=== PATIENT | male | born 1985 ===

== ENCOUNTER 2020-08-20 01:06 | Emergency (ER) | payer OTHER ==
[~2020-08-20] VITALS: Ht 162.6 cm; Wt 62.6 kg
[2020-08-20 01:18] VITALS: BP 133/92
--- NOTE | 2020-08-20 01:37 | ED Cough/URI ---
General Chief Complaint: Cough/Cold/Flu Symptoms Stated Complaint: COVID +, COUGH Nursing Triage Note: PT AMBULATE TO ROOM 10 WITH C/O COUGH. PT REPORTS HE TESTED POSITIVE FOR GONZALEZ ON TUESDAY. PT DENIES SOB, CHEST PAIN, FEVER. PT STATES HIS ONLY CONCERN IS HIS COUGH. Sepsis Screen: No Definite Risk Source: patient Exam Limitations: no limitations History of Present Illness Date Seen by Provider: Aug 20, 2020 Time Seen by Provider: 01:32 Initial Comments Patient is a 35-year-old male who presents to the emergency room with a chief complaint of feeling mildly short of breath with a cough. Patient states that he was diagnosed with coronavirus on Tuesday, 4 days ago. Patient has had no significant symptomatology. He denies any earache, sore throat, runny nose. He denies body aches. He states his sense of taste is changed but not lost. Patient states that he has not really had any symptoms until this evening when he went to lay down to go to bed and he developed cough. Patient states that he has been taking some honey but his cough was worse tonight and he became concerned and came to the emergency room for further evaluation. He denies any GI symptoms or symptoms. He states he is in quarantine with the rest of his family. All other review of systems reviewed and negative except as stated. Timing/Duration: just prior to arrival Severity/Quality: moderate Prior Episodes/Possible Cause: occasional episodes Associated Symptoms: cough Allergies and Home Medications Patient Home Medication List Home Medication List Reviewed: Yes Review of Systems Review of Systems Constitutional: see HPI EENTM: no symptoms reported Respiratory: cough Cardiovascular: no symptoms reported Gastrointestinal: no symptoms reported Genitourinary: no symptoms reported Musculoskeletal: no symptoms reported Skin: no symptoms reported All Other Systems Reviewed Negative Unless Noted: Yes Past Ybgidop-Bzsoxr-Kftxks Hx Patient Social History Alcohol Use: Denies Use Recreational Drug Use: No Smoking Status: Never a Smoker 2nd Hand Smoke Exposure: No Recent Foreign Travel: No Contact w/Someone Who Travel: No Recent Infectious Disease Expo: Yes Recent Hopitalizations: No Physical Abuse: No Sexual Abuse: No Mistreated: No Fear: No Seasonal Allergies Seasonal Allergies: No Past Medical History Surgeries: No Respiratory: No Cardiac: No Neurological: No Genitourinary: No Gastrointestinal: No Musculoskeletal: No Endocrine: No HEENT: No Cancer: No Psychosocial: No Integumentary: No Blood Disorders: No Physical Exam Vital Signs - First Documented 08/20/20 01:18 Temp 36.9 Pulse 99 Resp 18 B/P (MAP) 133/92 (106) O2 Delivery Room Air Capillary Refill : Less Than 3 Seconds Height: '" Weight: lbs. oz. kg; 23.00 BMI Method: General Appearance: WD/WN, no apparent distress HEENT: normal ENT inspection Neck: full range of motion, supple Respiratory: lungs clear, normal breath sounds, no respiratory distress, no accessory muscle use Cardiovascular: regular rate, rhythm Gastrointestinal: non tender, soft Neurologic/Psychiatric: alert, normal mood/affect, oriented x 3 Skin: normal color, warm/dry Progress/Results/Core Measures Suspected Sepsis Recent Fever Within 48 Hours: No Infection Criteria Present: None New/Unexplained Altered Menta: No Sepsis Screen: No Definite Risk SIRS Temperature: Pulse: 99 Respiratory Rate: 18 Blood Pressure 133 /92 Mean: 106 Results/Orders Vital Signs/I&O 08/20/20 08/20/20 01:18 01:29 Temp 36.9 Pulse 99 Resp 18 B/P (MAP) 133/92 (106) O2 Delivery Room Air Room Air Capillary Refill : Less Than 3 Seconds Blood Pressure Mean: 106 Progress Note : Time: 01:34 Progress Note 35-year-old male presents with a chief complaint of cough associated with coronavirus. Patient looks well. He is in no respiratory distress. Patient's vital signs are stable, the patient has 100% room air oxygen saturations. He is normotensive and not tachycardic. He is afebrile. Patient is counseled on cough medications tnea-xww-mxizcdn as well as home remedies including warm tea with honey and lemon. He verbalizes understanding. He is comfortable with the plan of care. All questions are sought and answered and he is stable for discharge. Departure Impression Primary Impression: Cough Additional Impression: Coronavirus infection Disposition: HOME, SELF-CARE Condition: Stable Departure-Patient Inst. Decision time for Depature: 01:35 Referrals: [facility] Patient Instructions: Coronavirus Disease 2019 (COVID-19) ED Add. Discharge Instructions: Drink plenty of fluids to stay well-hydrated. Use mtcx-xyh-yputscp Robitussin DM cough medication for your cough. You can also use warm tea with honey and lemon. Honey is very good for cough. Please follow-up with your primary care physician. Return to the emergency room for any worsening symptoms especially associated with shortness of breath, high fever, body aches or any other emergent concerning symptoms. OLIVIA RODRIGEZ MD Aug 20, 2020 01:37
== END 2020-08-20 01:45 | disposition home or self-care (01) ==
LOC: ER 01:10
DX: U07.1 COVID-19 (principal)
CPT/HCPCS: 99282

== ENCOUNTER 2021-11-19 11:14 | Emergency (ER) | payer SELFPAY ==
[~2021-11-19] VITALS: Ht 170 cm; Wt 81.6 kg
[2021-11-19] MEDS ORDERED: LACTATED RINGERS 1,000 ML IV ONE (11:45)
[2021-11-19] MEDS ORDERED: ONDANSETRON 4 MG/2 ML (SDV) Z0FRAN IVP ONE (11:45)
[2021-11-19] MEDS ORDERED: PANTOPRAZOLE 40 MG (PROTONIX) VIAL IV ONE (11:45)
[2021-11-19 11:54] LABS: BASOPHILS % (AUTO) 1 % (0-10); EOSINOPHILS % (AUTO) 0 % (0-10); HEMATOCRIT 44 % (40-54); LYMPHOCYTES # (AUTO) 0.6 10^3/uL (1.0-4.0); LYMPHOCYTES % (AUTO) 8 % (12-44); MEAN CORPUSCULAR HEMOGLOBIN 28 pg (25-34); MEAN CORPUSCULAR HGB CONC 34 g/dL (32-36); MEAN CORPUSCULAR VOLUME 83 fL (80-99); MEAN PLATELET VOLUME 9.6 fL (9.0-12.2); MONOCYTES # (AUTO) 0.7 10^3/uL (0.0-1.0); MONOCYTES % (AUTO) 10 % (0-12); NEUTROPHILS # (AUTO) 5.6 10^3/uL (1.8-7.8); NEUTROPHILS % (AUTO) 81 % (42-75); PLATELET COUNT 265 10^3/uL (130-400); WHITE BLOOD COUNT 6.9 10^3/uL (4.3-11.0)
[2021-11-19 12:04] LABS: ALBUMIN 4.6 GM/DL (3.2-4.5); CHLORIDE 105 MMOL/L (98-107); POTASSIUM 4.1 MMOL/L (3.6-5.0); SODIUM 135 MMOL/L (135-145)
[2021-11-19 12:06] LABS: GLUCOSE 101 MG/DL (70-105); INR 1.1 (0.8-1.4); PROTHROMBIN TIME PATIENT 14.2 SEC (12.2-14.7); TOTAL PROTEIN 7.8 GM/DL (6.4-8.2)
[2021-11-19 12:07] LABS: CARBON DIOXIDE 17 MMOL/L (21-32)
[2021-11-19 12:08] LABS: BILIRUBIN,TOTAL 0.6 MG/DL (0.1-1.0)
[2021-11-19 12:10] LABS: ALKALINE PHOSPHATASE 88 U/L (40-136); CREATININE SERUM 1.02 MG/DL (0.60-1.30); GFR ESTIMATED 97
[2021-11-19 12:11] LABS: BUN/CREATININE RATIO 10
[2021-11-19 12:13] LABS: ALANINE AMINOTRANSFERASE 41 U/L (0-55); LIPASE 15 U/L (8-78)
--- NOTE | 2021-11-19 12:56 | Diagnostic Imaging Report ---
INDICATION: 36-year-old male with three-day history of vomiting with hemoptysis of old blood. COMPARISONS: None. FINDINGS: Single view of the chest shows the cardiac contour to be normal. There is hemq-eu-asbyayia central venous congestion accentuated by the portable technique. Some minimal perihilar infiltrates are seen, but no confluent consolidations are present. There is no effusion or pneumothorax. Soft tissues and bony thorax are unremarkable. IMPRESSION: 1. Central venous congestion with some prominence of the central lung markings accentuated by the portable technique. 2. Some perihilar and left lower lobe alveolar infiltrates, but no confluent consolidations. Dictated by: Dictated on workstation # [id number]
[2021-11-19] MEDS ORDERED: KETOROLAC 30 MG/ML VIAL IVP ONE (13:15)
--- NOTE | 2021-11-19 13:22 | ED General ---
General Chief Complaint: Abdominal/GI Problems Stated Complaint: VOMITING BLOOD Nursing Triage Note: PT AMB TO RM 6 WITH C/O VOMITTING X3 DAYS, NOT BEING ABLE TO EAT OR DRINK AND LAST NIGHT HE NOTICED BLACK CLOTS WHILE VOMITTING. PT STATES HE GOT DIZZY LAST NIGHT AND FELL A COUPLE OF TIMES ALSO Source of Information: Patient, Family Exam Limitations: No Limitations History of Present Illness Date Seen by Provider: Nov 19, 2021 Time Seen by Provider: 11:24 Initial Comments This 36-year-old gentleman presents to the emergency room by private vehicle accompanied by his with concerns about vomiting x3 days. Last night he states he vomited 14 times and vomited some black clots which were concerning for blood. He describes a burning sensation in his upper abdomen through his chest and into his neck. He states that his upper chest and neck feel "frozen". He has been drinking only water for the past couple of days and has not been able to keep that down. He also developed fever and myalgias last night. He reports taking some liquid ibuprofen which did help his pain. He reports intense coughing for the past couple of days as well. Patient admits to frequent alcohol consumption. He stated he drinks every other day. His reported that he drinks every day. He reports his last alcoholic drink was 2 days ago. Patient was initially seen in the clinic but was referred to the ER. Allergies and Home Medications Allergies Coded Allergies: No Known Drug Allergies (Unverified , 11/19/21) Patient Home Medication List Home Medication List Reviewed: Yes Azithromycin (Azithromycin) 250 Mg Tablet, 250 MG PO UD Prescribed by: CHAS WEST on 11/19/21 132 Omeprazole (Omeprazole) 20 Mg Capsule.dr, 20 MG PO BID Prescribed by: CHAS WEST on 11/19/211323 Ondansetron (Ondansetron Odt) 4 Mg Tab.rapdis, 4 MG SL Q4H PRN for NAUSEA/VOMITING Prescribed by: CHAS WEST on 11/19/211323 Oseltamivir Phosphate (Tamiflu) 75 Mg Cap, 75 MG PO BID Prescribed by: CHAS WEST on 11/19/21 132 Review of Systems Review of Systems Constitutional: see HPI, fever EENTM: see HPI, throat pain Respiratory: see HPI Cardiovascular: no symptoms reported Gastrointestinal: see HPI Genitourinary: no symptoms reported Musculoskeletal: see HPI Skin: no symptoms reported Psychiatric/Neurological: No Symptoms Reported Hematologic/Lymphatic: No Symptoms Reported Immunological/Allergic: no symptoms reported Past Qhbmsej-Hueoub-Kuqjpu Hx Patient Social History Tobacco Use?: No Smokeless Tobacco Frequency: Current Everyday User Substance use?: No Alcohol Use?: Yes Alcohol Frequency: Daily Pt feels they are or have been: No Immunizations Up To Date Influenza Vaccine Up-to-Date: Yes; Up-to-Date First/Initial COVID19 Vaccinat: 2020 Second COVID19 Vaccination Du: 2020 Seasonal Allergies Seasonal Allergies: No Past Medical History Surgeries: No Respiratory: No Cardiac: No Neurological: No Genitourinary: No Gastrointestinal: No Musculoskeletal: No Endocrine: No HEENT: No Cancer: No Psychosocial: No Integumentary: No Blood Disorders: No Physical Exam Vital Signs Vital Signs - First Documented 11/19/21 11:25 Temp 37.9 Pulse 115 Resp 20 B/P (MAP) 137/76 (96) Capillary Refill : Height, Weight, BMI Height: '" Weight: lbs. oz. 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 II- XII Norm as Tested Skin: Normal Color, Warm/Dry Progress/Results/Core Measures Suspected Sepsis SIRS Temperature: Pulse: 115 Respiratory Rate: 20 Laboratory Tests 11/19/21 11:40: White Blood Count 6.9 Blood Pressure 137 /76 Mean: 96 Laboratory Tests 11/19/21 11:40: Creatinine 1.02, INR Comment 1.1, Platelet Count 265, Total Bilirubin 0.6 Results/Orders Lab Results Laboratory Tests Test 11/19/21 11:33 11/19/21 11:40 Range/Units Influenza Type A (RT-PCR) Detected H Not Detecte Influenza Type B (RT-PCR) Not Detected Not Detecte SARS-CoV-2 RNA (RT-PCR) Not Detected Not Detecte White Blood Count 6.9 4.3-11.0 10^3/uL Red Blood Count 5.29 4.30-5.52 10^6/uL Hemoglobin 15.0 13.3-17.7 g/dL Hematocrit 44 40-54 % Mean Corpuscular Volume 83 80-99 fL Mean Corpuscular Hemoglobin 28 25-34 pg Mean Corpuscular Hemoglobin Concent 34 32-36 g/dL Red Cell Distribution Width 13.2 10.0-14.5 % Platelet Count 265 130-400 10^3/uL Mean Platelet Volume 9.6 9.0-12.2 fL Immature Granulocyte % (Auto) 0 % Neutrophils (%) (Auto) 81 H 42-75 % Lymphocytes (%) (Auto) 8 L 12-44 % Monocytes (%) (Auto) 10 0-12 % Eosinophils (%) (Auto) 0 0-10 % Basophils (%) (Auto) 1 0-10 % Neutrophils # (Auto) 5.6 1.8-7.8 10^3/uL Lymphocytes # (Auto) 0.6 L 1.0-4.0 10^3/uL Monocytes # (Auto) 0.7 0.0-1.0 10^3/uL Eosinophils # (Auto) 0.0 0.0-0.3 10^3/uL Basophils # (Auto) 0.0 0.0-0.1 10^3/uL Immature Granulocyte # (Auto) 0.0 0.0-0.1 10^3/uL Prothrombin Time 14.2 12.2-14.7 SEC INR Comment 1.1 0.8-1.4 Activated Partial Thromboplast Time 35 24-35 SEC Sodium Level 135 135-145 MMOL/L Potassium Level 4.1 3.6-5.0 MMOL/L Chloride Level 105 98-107 MMOL/L Carbon Dioxide Level 17 L 21-32 MMOL/L Anion Gap 13 5-14 MMOL/L Blood Urea Nitrogen 10 7-18 MG/DL Creatinine 1.02 0.60-1.30 MG/DL Estimat Glomerular Filtration Rate 97 BUN/Creatinine Ratio 10 Glucose Level 101 70-105 MG/DL Calcium Level 9.0 8.5-10.1 MG/DL Corrected Calcium 8.5-10.1 MG/DL Total Bilirubin 0.6 0.1-1.0 MG/DL Aspartate Amino Transf (AST/SGOT) 32 5-34 U/L Alanine Aminotransferase (ALT/SGPT) 41 0-55 U/L Alkaline Phosphatase 88 40-136 U/L C-Reactive Protein High Sensitivity 3.51 H 0.00-0.50 MG/DL Total Protein 7.8 6.4-8.2 GM/DL Albumin 4.6 H 3.2-4.5 GM/DL Lipase 15 8-78 U/L Serum Alcohol < 10 <10 MG/DL My Orders Orders - CHAS ÁLVAREZ MD Alcohol (11/19/21 11:24) Cbc With Automated Diff (11/19/21 11:24) Comprehensive Metabolic Panel (11/19/21 11:24) Lipase (11/19/21 11:24) Protime With Inr (11/19/21 11:24) Partial Thromboplastin Time (11/19/21 11:24) Ua Culture If Indicated (11/19/21 11:24) Ed Iv/Invasive Line Start (11/19/21 11:24) Hs C Reactive Protein (11/19/21 11:37) Chest 1 View, Ap/Pa Only (11/19/21 11:37) Ondansetron Injection (Zofran Injectio (11/19/21 11:45) Pantoprazole Injection (Protonix Injecti (11/19/21 11:45) Lactated Ringers (Lr 1000 Ml Iv Solution (11/19/21 11:45) Covid 19 Inhouse Test (11/19/21 11:42) Influenza A And B By Pcr (11/19/21 11:42) Ketorolac Injection (Toradol Injection) (11/19/21 13:15) Medications Given in ED Current Medications Medications Dose Ordered Sig/Elijah Route Start Time Stop Time Status Last Admin Dose Admin Ketorolac Tromethamine 15 mg ONCE ONCE IVP 11/19/21 13:15 11/19/21 13:16 DC 11/19/21 13:19 15 MG Lactated Ringer's 1,000 ml @ 0 mls/hr Q0M ONCE IV 11/19/21 11:45 11/19/21 11:46 DC 11/19/21 11:57 1,000 MLS/HR Ondansetron HCl 8 mg ONCE ONCE IVP 11/19/21 11:45 11/19/21 11:46 DC 11/19/21 11:57 8 MG Pantoprazole 80 mg ONCE ONCE IV 11/19/21 11:45 11/19/21 11:46 DC 11/19/21 11:57 80 MG Vital Signs/I&O 11/19/21 11/19/21 11:25 13:30 Temp 37.9 37.9 Pulse 115 98 Resp 20 18 B/P (MAP) 137/76 (96) 151/67 Capillary Refill : Blood Pressure Mean: 96 Progress Note : Progress Note Patient was promptly seen and evaluated. He was treated with Protonix, Zofran, and IV fluids. He noted significant improvement with this therapy. He was also given Toradol 15 mg IV prior to discharge to help with his myalgias. He was diagnosed with influenza A. Work-up was otherwise relatively unremarkable. There were some pulmonary infiltrate markings noted on the chest x-ray. Althoug h this is likely due to influenza, a secondary pneumonia cannot be ruled out. He was therefore prescribed a azithromycin. We reviewed discharge instructions including his medications and the need to discontinue alcohol consumption. See discharge instructions for further details. Diagnostic Imaging Diagonstic Imaging: Xray Plain Films/CT/US/NM/MRI: chest Comments Chest x-ray viewed by me and report reviewed. See report below: NAME: JEANETTE BARKER [facility] REC#: [id number] PT STATUS: REG ER : 1985 PHYSICIAN: CHAS ÁLVAREZ MD ADMIT DATE: 11/19/21/ER Draft Date of Exam:11/19/21 CHEST 1 VIEW, AP/PA ONLY INDICATION: 36-year-old male with three-day history of vomiting with hemoptysis of old blood. COMPARISONS: None. FINDINGS: Single view of the chest shows the cardiac contour to be normal. There is etgg-ke-ahjcchcv central venous congestion accentuated by the portable technique. Some minimal perihilar infiltrates are seen, but no confluent consolidations are present. There is no effusion or pneumothorax. Soft tissues and bony thorax are unremarkable. IMPRESSION: 1. Central venous congestion with some prominence of the central lung markings accentuated by the portable technique. 2. Some perihilar and left lower lobe alveolar infiltrates, but no confluent consolidations. Dictated on workstation # [id number] Dict: 11/19/21 1250 Trans: 11/19/21 1256 [id number] Interpreted by: JOYCE MUNOZ MD Departure Impression Primary Impression: Influenza A Additional Impressions: Hematemesis Qualified Codes: K92.0 - Hematemesis Nausea & vomiting Qualified Codes: R11.2 - Nausea with vomiting, unspecified Pulmonary infiltrate Regular alcohol consumption Disposition: 01 HOME, SELF-CARE Condition: Improved Departure-Patient Inst. Decision time for Depature: 13:18 Referrals: [facility] [place] Primary Care Physician Patient Instructions: Flu, Gastrointestinal Bleeding Add. Discharge Instructions: 1. Influenza A - Take Tamiflu as prescribed. Complete the entire 10 doses. You may take Tylenol (acetaminophen) up to 1000 mg every 6 hours as needed for pain or fever. Because you were possibly experiencing some bleeding from your stomach or esophagus, please avoid using NSAID medications such as ibuprofen, Aleve, Advil, aspirin, etc. 2. Vomiting blood - Your frequent alcohol consumption may be causing significant irritation to your stomach and esophagus. Please take omeprazole (antiacid) twice daily for the next month to help protect your stomach and follow-up with your primary care doctor soon as possible. Discontinue alcohol consumption to prevent further irritation of the stomach and esophagus. You should discuss further work-up with your primary care provider that may include endoscopy of your stomach and esophagus. 3. Pulmonary infiltrates - These lung markings on your chest x-ray are likely due to the flu. However, there may also be some pneumonia present. Please complete the antibiotic (azithromycin) as prescribed and follow-up with your primary care provider within the next 1 to 2 weeks to discuss further. 4. Nausea and vomiting - You may treat your nausea and vomiting with Zofran (ondansetron) as prescribed. Dissolve 1 tablet under the tongue every 4 hours as needed. 5. Call with questions or concerns and return to the ER if you have worsening symptoms despite following these instructions. All discharge instructions reviewed with patient and/or family. Voiced understanding. Scripts Oseltamivir Phosphate (Tamiflu) 75 Mg Cap 75 MG PO BID, #10 CAP Prov: CHAS ÁLVAREZ MD 11/19/21 Omeprazole (Omeprazole) 20 Mg Capsule.dr 20 MG PO BID, #60 CAP Prov: CHAS ÁLVAREZ MD 11/19/21 Azithromycin (Azithromycin) 250 Mg Tablet 250 MG PO UD, #6 TAB TAKE 2 TABLETS ON DAY ONE THEN TAKE 1 TABLET DAILY FOR FOUR MORE DAYS Prov: CHAS ÁLVAREZ MD 11/19/21 Ondansetron (Ondansetron Odt) 4 Mg Tab.rapdis 4 MG SL Q4H PRN for NAUSEA/VOMITING, #10 TAB Prov: CHAS ÁLVAREZ MD 11/19/21 Copy Copies To 1: DIPTI CHEN JOSHUA T MD Nov 19, 2021 13:22
[2021-11-19] MEDS ORDERED: OSLT75C PO (13:24)
[2021-11-19] MEDS ORDERED: AZIT250T12 PO (13:24)
[2021-11-19] MEDS ORDERED: ONDA4TAB11 SL (13:24)
[2021-11-19] MEDS ORDERED: OMEP20CA18 PO (13:24)
[2021-11-19 13:30] VITALS: BP 151/67
[2021-11-20] MEDS ORDERED: HYOS0.1283 SL (10:20)
[2021-11-20] MEDS ORDERED: ACHD5005 PO (10:20)
== END 2021-11-19 13:33 | disposition home or self-care (01) ==
LOC: EDUNIT# 11:14 → ER 11:21
DX: J10.1 Influenza due to other identified influenza virus with other respiratory manifestations (principal); K92.0 Hematemesis; R91.8 Other nonspecific abnormal finding of lung field; F10.99 Alcohol use, unspecified with unspecified alcohol-induced disorder; F17.290 Nicotine dependence, other tobacco product, uncomplicated; Z20.822 Contact with and (suspected) exposure to COVID-19
CPT/HCPCS: 71045; 80053; 83690; 85025; 85610; 85730; 86141; 87636; 99284; G0480; 36415; 80320

== ENCOUNTER 2021-11-20 07:34 | Emergency (ER) | payer SELFPAY ==
[~2021-11-20] VITALS: Ht 170 cm; Wt 81.6 kg
[~2021-11-20 07:34] MED LIST: AZIT250T12 PO; OMEP20CA18 PO; ONDA4TAB11 SL; OSLT75C PO
[2021-11-20] MEDS ORDERED: LACTATED RINGERS 1,000 ML IV ONE (07:45)
[2021-11-20 08:16] LABS: BASOPHILS % (AUTO) 0 % (0-10); EOSINOPHILS % (AUTO) 0 % (0-10); HEMATOCRIT 42 % (40-54); HEMOGLOBIN 14.4 g/dL (13.3-17.7); LYMPHOCYTES # (AUTO) 0.7 10^3/uL (1.0-4.0); LYMPHOCYTES % (AUTO) 11 % (12-44); MEAN CORPUSCULAR HEMOGLOBIN 28 pg (25-34); MEAN CORPUSCULAR HGB CONC 34 g/dL (32-36); MEAN CORPUSCULAR VOLUME 83 fL (80-99); MEAN PLATELET VOLUME 9.6 fL (9.0-12.2); MONOCYTES # (AUTO) 0.6 10^3/uL (0.0-1.0); MONOCYTES % (AUTO) 9 % (0-12); NEUTROPHILS # (AUTO) 5.4 10^3/uL (1.8-7.8); NEUTROPHILS % (AUTO) 80 % (42-75); PLATELET COUNT 244 10^3/uL (130-400); WHITE BLOOD COUNT 6.8 10^3/uL (4.3-11.0)
[2021-11-20] MEDS ORDERED: HYOSCYAMINE 0.125 MG (LEVSIN) TAB SL ONE (08:30)
[2021-11-20] MEDS ORDERED: fentaNYL INJ 100 MCG/2 ML AMP IVP ONE (08:30)
[2021-11-20 08:33] LABS: ALANINE AMINOTRANSFERASE 36 U/L (0-55); ALBUMIN 4.2 GM/DL (3.2-4.5); ALKALINE PHOSPHATASE 74 U/L (40-136); BILIRUBIN,TOTAL 0.5 MG/DL (0.1-1.0); BUN/CREATININE RATIO 11; CALCIUM 8.6 MG/DL (8.5-10.1); CARBON DIOXIDE 17 MMOL/L (21-32); CHLORIDE 105 MMOL/L (98-107); CREATININE SERUM 0.88 MG/DL (0.60-1.30); GFR ESTIMATED 114; GLUCOSE 119 MG/DL (70-105); LIPASE 15 U/L (8-78); POTASSIUM 3.6 MMOL/L (3.6-5.0); SODIUM 134 MMOL/L (135-145); TOTAL PROTEIN 7.6 GM/DL (6.4-8.2)
--- NOTE | 2021-11-20 09:19 | Diagnostic Imaging Report ---
EXAMINATION: Abdomen 2 view HISTORY: abd pain COMPARISON: None available. FINDINGS: There is a moderate amount of gas and stool throughout the colon. Nonobstructive bowel gas pattern. No radiopaque foreign body. The lung bases are clear. The osseous structures are intact. IMPRESSION: Moderate stool burden without other acute abnormality in the abdomen. Dictated by: Dictated on workstation # [id number]
[2021-11-20 09:27] LABS: BILIRUBIN,URINE NEGATIVE (NEGATIVE); CLARITY,URINE CLEAR; COLOR,URINE YELLOW; GLUCOSE, URINE (UA) NEGATIVE (NEGATIVE); KETONES,URINE 2+ (NEGATIVE); LEUKOCYTE ESTERASE ,URINE NEGATIVE (NEGATIVE); NITRITE,URINE NEGATIVE (NEGATIVE); PROTEIN,URINE TRACE (NEGATIVE)
[2021-11-20 09:41] LABS: BACTERIA,URINE NEGATIVE /HPF; RBC,URINE RARE /HPF; SQUAMOUS EPITHELIAL CELL,UR RARE /HPF
[2021-11-20] MEDS ORDERED: HYDROcodone/APAP 5 MG/325 MG (LORTAB) TAB PO ONE (10:15)
[2021-11-20] MEDS ORDERED: ACHD5005 PO (10:20)
[2021-11-20] MEDS ORDERED: HYOS0.1283 SL (10:20)
--- NOTE | 2021-11-20 10:21 | ED Abdominal Pain ---
General Chief Complaint: Abdominal/GI Problems Stated Complaint: ABD PAIN/DIARRHEA Nursing Triage Note: PT AMB TO RM 5 PT CO OF ABD PAIN AND DIARREHEA WORSENING LAST PM. PT CO OF DIFFUSE ABD PAIN 05/15. PT WAS SEEN IN ED YESTERDAY AND TESTED FLU A +. DENIES VOMITING OR BLOODY STOOLS Source of Information: Patient, Old Records Exam Limitations: No Limitations History of Present Illness Date Seen by Provider: Nov 20, 2021 Time Seen by Provider: 07:45 Initial Comments This 36-year-old gentleman presents to the emergency room with complaints of lower abdominal pain, diarrhea, and cramping. He was seen in the ER yesterday and diagnosed with influenza A. At that time he was experiencing hematemesis and upper abdominal pain. Those issues seem to have improved, but now he has the lower abdominal pain. He has been taking the medications as prescribed. He reports abstaining from alcohol as directed. Allergies and Home Medications Allergies Coded Allergies: No Known Drug Allergies (Unverified , 11/19/21) Patient Home Medication List Home Medication List Reviewed: Yes Azithromycin (Azithromycin) 250 Mg Tablet, 250 MG PO UD Prescribed by: CHAS WEST on 11/19/21 1324 Hydrocodone/Acetaminophen (Hydrocodone-Acetamin 5-325 mg) 1 Each Tablet, 1 TAB PO Q4H PRN for PAIN-MODERATE (5-7) Prescribed by: CHAS WEST on 11/20/21 1020 Hyoscyamine Sulfate (Levsin-Sl) 0.125 Mg Tab.subl, 1-2 MG SL Q4H PRN for CRAMPS Prescribed by: CHAS WEST on 11/20/21 1020 Omeprazole (Omeprazole) 20 Mg Capsule.dr, 20 MG PO BID Prescribed by: CHAS WEST on 11/19/21 1324 Ondansetron (Ondansetron Odt) 4 Mg Tab.rapdis, 4 MG SL Q4H PRN for NAUSEA/VOMITING Prescribed by: CHAS WEST on 11/19/21 1324 Oseltamivir Phosphate (Tamiflu) 75 Mg Cap, 75 MG PO BID Prescribed by: CHAS WEST on 11/19/21 1324 Review of Systems Review of Systems Constitutional: no symptoms reported EENTM: No Symptoms Reported Respiratory: Cough Cardiovascular: No Symptoms Reported Gastrointestinal: See HPI Genitourinary: No Symptoms Reported Musculoskeletal: no symptoms reported Skin: no symptoms reported Psychiatric/Neurological: No Symptoms Reported Endocrine: No Symptoms Reported Hematologic/Lymphatic: No Symptoms Reported Past Ovqkght-Bxhpgh-Rxdlkk Hx Patient Social History Tobacco Use?: Yes Smokeless Tobacco Frequency: Current Everyday User Use of E-Cig and/or Vaping dev: No Substance use?: No Alcohol Use?: Yes Alcohol Frequency: Daily Immunizations Up To Date First/Initial COVID19 Vaccinat: 2020 Second COVID19 Vaccination Du: 2020 Seasonal Allergies Seasonal Allergies: No Past Medical History Surgeries: No Respiratory: No Cardiac: No Neurological: No Genitourinary: No Gastrointestinal: No Musculoskeletal: No Endocrine: No HEENT: No Cancer: No Psychosocial: No Integumentary: No Blood Disorders: No Physical Exam Vital Signs Vital Signs - First Documented 11/20/21 07:45 Temp 36.7 Pulse 70 Resp 18 B/P (MAP) 128/97 (107) Pulse Ox 97 Capillary Refill : Less Than 3 Seconds Height/Weight/BMI Height: '" Weight: lbs. oz. kg; 28.00 BMI Method: General Appearance: WD/WN, mild distress HEENT: normal ENT inspection Neck: normal inspection Respiratory: lungs clear, normal breath sounds, no respiratory distress Cardiovascular: regular rate, rhythm, no edema, no murmur Gastrointestinal: normal bowel sounds, soft; No distended; tenderness (Generalized throughout the lower abdomen) Extremities: normal inspection, no pedal edema Neurologic/Psychiatric: no motor/sensory deficits, alert, normal mood/affect, oriented x 3 Skin: normal color, warm/dry Progress/Results/Core Measures Results/Orders Lab Results Laboratory Tests Test 11/20/21 08:00 11/20/21 09:19 Range/Units White Blood Count 6.8 4.3-11.0 10^3/uL Red Blood Count 5.09 4.30-5.52 10^6/uL Hemoglobin 14.4 13.3-17.7 g/dL Hematocrit 42 40-54 % Mean Corpuscular Volume 83 80-99 fL Mean Corpuscular Hemoglobin 28 25-34 pg Mean Corpuscular Hemoglobin Concent 34 32-36 g/dL Red Cell Distribution Width 13.0 10.0-14.5 % Platelet Count 244 130-400 10^3/uL Mean Platelet Volume 9.6 9.0-12.2 fL Immature Granulocyte % (Auto) 0 % Neutrophils (%) (Auto) 80 H 42-75 % Lymphocytes (%) (Auto) 11 L 12-44 % Monocytes (%) (Auto) 9 0-12 % Eosinophils (%) (Auto) 0 0-10 % Basophils (%) (Auto) 0 0-10 % Neutrophils # (Auto) 5.4 1.8-7.8 10^3/uL Lymphocytes # (Auto) 0.7 L 1.0-4.0 10^3/uL Monocytes # (Auto) 0.6 0.0-1.0 10^3/uL Eosinophils # (Auto) 0.0 0.0-0.3 10^3/uL Basophils # (Auto) 0.0 0.0-0.1 10^3/uL Immature Granulocyte # (Auto) 0.0 0.0-0.1 10^3/uL Sodium Level 134 L 135-145 MMOL/L Potassium Level 3.6 3.6-5.0 MMOL/L Chloride Level 105 98-107 MMOL/L Carbon Dioxide Level 17 L 21-32 MMOL/L Anion Gap 12 5-14 MMOL/L Blood Urea Nitrogen 10 7-18 MG/DL Creatinine 0.88 0.60-1.30 MG/DL Estimat Glomerular Filtration Rate 114 BUN/Creatinine Ratio 11 Glucose Level 119 H 70-105 MG/DL Calcium Level 8.6 8.5-10.1 MG/DL Corrected Calcium 8.4 L 8.5-10.1 MG/DL Magnesium Level 2.0 1.6-2.4 MG/DL Total Bilirubin 0.5 0.1-1.0 MG/DL Aspartate Amino Transf (AST/SGOT) 28 5-34 U/L Alanine Aminotransferase (ALT/SGPT) 36 0-55 U/L Alkaline Phosphatase 74 40-136 U/L C-Reactive Protein High Sensitivity 4.99 H 0.00-0.50 MG/DL Total Protein 7.6 6.4-8.2 GM/DL Albumin 4.2 3.2-4.5 GM/DL Lipase 15 8-78 U/L Serum Alcohol < 10 <10 MG/DL Urine Color YELLOW Urine Clarity CLEAR Urine pH 6.0 5-9 Urine Specific Alvin 1.025 H 1.016-1.022 Urine Protein TRACE H NEGATIVE Urine Glucose (UA) NEGATIVE NEGATIVE Urine Ketones 2+ H NEGATIVE Urine Nitrite NEGATIVE NEGATIVE Urine Bilirubin NEGATIVE NEGATIVE Urine Urobilinogen 0.2 < = 1.0 MG/DL Urine Leukocyte Esterase NEGATIVE NEGATIVE Urine RBC (Auto) TRACE-I H NEGATIVE Urine RBC RARE /HPF Urine WBC NONE /HPF Urine Squamous Epithelial Cells RARE /HPF Urine Crystals NONE /LPF Urine Bacteria NEGATIVE /HPF Urine Casts NONE /LPF Urine Mucus SMALL H /LPF Urine Culture Indicated NO My Orders Orders - CHAS ÁLVAREZ MD Cbc With Automated Diff (11/20/21 07:45) Comprehensive Metabolic Panel (11/20/21 07:45) Hs C Reactive Protein (11/20/21 07:45) Lipase (11/20/21 07:45) Magnesium (11/20/21 07:45) Ed Iv/Invasive Line Start (11/20/21 07:45) Lactated Ringers (Lr 1000 Ml Iv Solution (11/20/21 07:45) Alcohol (11/20/21 07:45) Hyoscyamine Sl Tablet (Levsin Sl Tablet) (11/20/21 08:30) Fentanyl Inj (Sublimaze Injection) (11/20/21 08:30) Ua Culture If Indicated (11/20/21 08:26) Abdomen, Flat & Upright/Decub (11/20/21 08:59) Hydrocodone/Apap 5/325 Tablet (Lortab 5 (11/20/21 10:15) Medications Given in ED Vital Signs/I&O 11/20/21 11/20/21 07:45 10:34 Temp 36.7 36.7 Pulse 70 84 Resp 18 18 B/P (MAP) 128/97 (107) 142/99 Pulse Ox 97 98 Blood Pressure Mean: 107 Progress Progress Note : Progress Note He was hydrated with IV fluids and treated with fentanyl and Levsin. This resolved his pain and diarrhea but pain recurred. He was further treated with hydrocodone. Labs were fairly unremarkable. KUB and upright x-ray was unremark able for bowel obstruction or other significant acute abnormality. Diagnostic Imaging Diagonstic Imaging: Xray Plain Films/CT/US/NM/MRI: abdomen, pelvis Comments NAME: JEANETTE BARKER MED REC#: [id number] PT STATUS: DEP ER : 1985 PHYSICIAN: CHAS ÁLVAREZ MD ADMIT DATE: 11/20/21/ER Signed Date of Exam:11/20/21 ABDOMEN, FLAT & UPRIGHT/DECUB EXAMINATION: Abdomen 2 view HISTORY: abd pain COMPARISON: None available. FINDINGS: There is a moderate amount of gas and stool throughout the colon. Nonobstructive bowel gas pattern. No radiopaque foreign body. The lung bases are clear. The osseous structures are intact. IMPRESSION: Moderate stool burden without other acute abnormality in the abdomen. Dictated by: Dictated on workstation # [id number] Dict: 11/20/21917 Trans: 11/20/211106 [facility] [id number] Interpreted by: ADOLFO WHITTEN DO Electronically signed by: ADOLFO WHITTEN DO 11/20/21 1107 Departure Impression Primary Impression: Influenza A Additional Impressions: Generalized abdominal pain Diarrhea Qualified Codes: R19.7 - Diarrhea, unspecified Disposition: 01 HOME, SELF-CARE Condition: Improved Departure-Patient Inst. Decision time for Depature: 10:18 Referrals: NO,LOCAL PHYSICIAN (PCP/Family) Primary Care Physician Patient Instructions: Abdominal Pain, Adult ED, Flu, Adult ED Add. Discharge Instructions: Consume only clear liquids for the remainder of today. Use noncarbonated liquids. If you are feeling better tomorrow, you may gradually advance your diet with small quantities of bland food as tolerated. Continue medications as prescribed yesterday. If needed, you may use Levsin prescribed today for cramping and diarrhea. If you have more severe pain, you may use hydrocodone as prescribed. Return to the emergency room if you have worsening symptoms despite following these instructions. Call with questions or concerns. All discharge instructions reviewed with patient and/or family. Voiced understanding. Scripts Hydrocodone/Acetaminophen (Hydrocodone-Acetamin 5-325 mg) 1 Each Tablet 1 TAB PO Q4H PRN for PAIN-MODERATE (5-7), #5 TAB Prov: CHAS ÁLVAREZ MD 11/20/21 Hyoscyamine Sulfate (Levsin-Sl) 0.125 Mg Tab.subl 1-2 MG SL Q4H PRN for CRAMPS, #10 TAB 0 Refills For bowel cramps or diarrhea. Prov: HCAS ÁLVAREZ MD 11/20/21 CHAS ÁLVAREZ MD Nov 20, 2021 10:20
[2021-11-20 10:34] VITALS: BP 142/99
== END 2021-11-20 10:34 | disposition home or self-care (01) ==
LOC: EDUNIT# 07:34 → ER 07:36
DX: J10.1 Influenza due to other identified influenza virus with other respiratory manifestations (principal); R10.84 Generalized abdominal pain; R19.7 Diarrhea, unspecified
CPT/HCPCS: 74019; 80053; 81000; 83690; 83735; 85025; 86141; 99284; G0480; 36415; 80320